=== PATIENT | female | born 1995 | race Asian ===

== ENCOUNTER 2020-05-16 10:03 | Inpatient (IN) | payer MEDICAID, OTHER ==
[2020-05-16] MEDS ORDERED: Ondansetron PF 4 MG/2 ML Vial IVP PRN ×3 (10:45→23:55)
[2020-05-16] MEDS ORDERED: Lactated Ringer's 1,000 ML IV SCH (10:45)
[2020-05-16] MEDS ORDERED: Diphenoxylate HCl/Atropine Tablet PO PRN ×2 (10:45)
[2020-05-16] MEDS ORDERED: Ibuprofen 800 MG TAB PO PRN (10:45)
[2020-05-16] MEDS ORDERED: Lidocaine 1% (PF) 30 ML VIAL SC PRN (10:45)
[2020-05-16] MEDS ORDERED: hydrALAZINE 20 MG/ML VIAL SLOW IVP PRN ×2 (10:45→23:55)
[2020-05-16] MEDS ORDERED: Acetaminophen 500 MG TAB PO PRN (10:45)
[2020-05-16] MEDS ORDERED: Promethazine HCl 25 MG/ML VIAL IM PRN ×3 (10:45→23:55)
[2020-05-16] MEDS ORDERED: Methylergonovine 0.2 MG/ML VIAL IM PRN ×2 (10:45→23:55)
[2020-05-16] MEDS ORDERED: Butorphanol Tartrate 1 MG/ML VIAL SLOW IVP PRN (10:45)
[2020-05-16] MEDS ORDERED: Carboprost 250 MCG/ML AMP IM PRN (10:45)
[2020-05-16] MEDS ORDERED: HYDROcodone/Acetaminophen 5/325 mg Tablet PO PRN ×4 (10:45→23:55)
[2020-05-16] MEDS ORDERED: Misoprostol 200 MCG TAB PR PRN (10:45)
[2020-05-16 11:09] LABS: Hemoglobin 11.5 g/dL (12.0-15.5); Mean Corpuscular HGB CONC 32.2 g/dL (32.0-36.0); Mean Corpuscular Hemoglobin 27.4 pg (27.0-33.0); Mean Platelet Volume 10.7 fl (7.4-10.4); Platelet Count 236 10x3/uL (150-450); RBC Distribution Width 14.4 % (11.5-14.5)
[2020-05-16 11:27] LABS: ALT (SGPT) 49 U/L (8-55); AST (SGOT) 27 U/L (5-34); Albumin 3.6 g/dL (3.5-5.0); Alkaline Phosphatase 295 U/L (40-110); Anion Gap 14 mmol/L (10-20); BUN (Urea Nitrogen) 7 mg/dL (7.0-18.7); Bilirubin, Total 0.4 mg/dL (0.2-1.2); Calc. Creatinine Clearance 0 mL/min (70-130); Calcium 9.2 mg/dL (7.8-10.44); Carbon Dioxide 22 mmol/L (22-29); Chloride 105 mmol/L (98-107); Globulin 3.2 g/dL (2.4-3.5); Glucose 98 mg/dL (70-105); Potassium 3.9 mmol/L (3.5-5.1); Protein, Total 6.8 g/dL (6.0-8.3); Sodium 137 mmol/L (136-145)
[2020-05-16 11:49] LABS: Syphilis Antibody Nonreactive (Nonreactive); Syphilis Antibody Index 0.07 S/CO (<1.00 Non-Reactive)
[2020-05-16 12:15] VITALS: BMI 26.6
[2020-05-16] MEDS ORDERED: NS w/ Oxytocin 30 units 500 ML IV PRN (12:33)
[2020-05-16] MEDS ORDERED: NS w/ Oxytocin 30 units 500 ML IVPB SCH ×2 (12:45)
[2020-05-16 13:12] LABS: HBSAg Index 2377.01 S/CO (0-0.99); Hep B Surf Ag Reflx Confirmation S/CO (NonReactive)
[2020-05-16] MEDS ORDERED: Fentanyl 4 mcg/Bup 0.1% Cadd 100 ML ONE (14:07)
[2020-05-16] MEDS ORDERED: ePHEDrine 50 MG/ML VIAL SLOW IVP PRN (14:57)
[2020-05-16] MEDS ORDERED: Lactated Ringer's 500 ML IV PRN (14:57)
[2020-05-16] MEDS ORDERED: Acetaminophen 325 MG TAB PO PRN (14:57)
[2020-05-16] MEDS ORDERED: diphenhydrAMINE 50 MG/ML VIAL IVP PRN (14:57)
[2020-05-16] MEDS ORDERED: Naloxone HCl 0.4 mg/ml Vial IVP PRN ×2 (14:57)
[2020-05-16] MEDS ORDERED: Fentanyl 4 mcg/Bupivacaine 0.1% Cassette 100 ML EPIDURAL SCH (15:00)
[2020-05-16] MEDS ORDERED: Communication Order-Pharmacy FS SCH (15:00)
[2020-05-16] MEDS ORDERED: Preparation H Ointment 28 GM TUBE PR PRN (23:55)
[2020-05-16] MEDS ORDERED: Zolpidem Tartrate 5 MG TAB PO PRN (23:55)
[2020-05-16] MEDS ORDERED: Lanolin Ointment 7 GM TUBE TOP PRN (23:55)
[2020-05-16] MEDS ORDERED: Benzocaine-Menthol 82.5 ML CAN TOP PRN (23:55)
[2020-05-16] MEDS ORDERED: Bisacodyl 10 MG SUPP PR PRN (23:55)
[2020-05-16] MEDS ORDERED: Adacel (T-DAP) 0.5 ML SYRINGE IM ONE (23:55)
[2020-05-16] MEDS ORDERED: diphenhydrAMINE 25 MG CAP PO PRN (23:55)
[2020-05-16] MEDS ORDERED: Milk Of Magnesia 30 ML UDCUP PO PRN (23:55)
[2020-05-16] MEDS ORDERED: Varicella virus, LIVE 0.5 ML VIAL SC ONE (23:55)
[2020-05-16] MEDS ORDERED: Misoprostol 200 MCG TAB VAG PRN (23:55)
[2020-05-17] MEDS ORDERED: NS w/ Oxytocin 30 units 500 ML IV SCH (00:30)
[2020-05-17] MEDS ORDERED: Docusate Calcium (SURFAK) 240 MG CAP PO SCH (00:30)
[2020-05-17 01:22] LABS: SARS-CoV-2 PCR by NAA Not Detected (NotDetected)
[2020-05-17 07:21] LABS: Hemoglobin 10.8 g/dL (12.0-15.5); Mean Corpuscular HGB CONC 31.3 g/dL (32.0-36.0); Mean Corpuscular Hemoglobin 26.8 pg (27.0-33.0); Mean Corpuscular Volume 85.6 fl (81.6-98.3); Mean Platelet Volume 11.1 fl (7.4-10.4); Platelet Count 205 10x3/uL (150-450); RBC Distribution Width 14.4 % (11.5-14.5); Red Blood Cell (RBC) Count 4.03 10x6/uL (3.90-5.03); White Blood Cell (WBC) Count 10.2 10x3/uL (3.5-10.5)
[2020-05-17] MEDS: Ibuprofen 800 MG TAB PO SCH ×4 (07:21→22:06)
[2020-05-17] MEDS: Ferrous Sulfate 325 MG TAB PO SCH ×2 (08:49→16:25)
[2020-05-17] MEDS: Prenatal Vitamin 1 TAB PO SCH (08:52)
[2020-05-17] MEDS: Docusate Calcium (SURFAK) 240 MG CAP PO SCH (22:07)
[2020-05-18] MEDS: Ibuprofen 800 MG TAB PO SCH (05:58)
[2020-05-18] MEDS: Ferrous Sulfate 325 MG TAB PO SCH (07:15)
[2020-05-18 07:55] VITALS: BP 103/59; TEMP 98.3
[2020-05-18] MEDS ORDERED: Measles/Mumps/Rubella 10 MCG/0.5 ML VIAL SC ONE (09:00)
[2020-05-18] MEDS: Prenatal Vitamin 1 TAB PO SCH (10:12)
[2020-05-18] MEDS: Docusate Calcium (SURFAK) 240 MG CAP PO SCH (10:12)
[2020-05-18 10:42] LABS: Hep B Surface AG-Rflx Sendout Confirm. indicated (Negative)
== END 2020-05-18 11:20 | disposition home or self-care (01) | DRG 806 ==
LOC: CSHLD 10:03 → CSHPED 05-17 09:13
PROVIDERS: ADMIT Obstetrics & Gynecology; ATTEND Obstetrics & Gynecology
PROC: 10E0XZZ Delivery of Products of Conception, External Approach (ICD-10-PCS; principal; 2020-05-16)
PROC: 0KQM0ZZ Repair Perineum Muscle, Open Approach (ICD-10-PCS; 2020-05-16)
PROC: 3E0234Z Introduction of Serum, Toxoid and Vaccine into Muscle, Percutaneous Approach (ICD-10-PCS; 2020-05-16)
DX: O98.82 Other maternal infectious and parasitic diseases complicating childbirth (principal); B18.1 Chronic viral hepatitis B without delta-agent; Z20.822 Contact with and (suspected) exposure to COVID-19; O70.1 Second degree perineal laceration during delivery; Z23 Encounter for immunization; Z37.0 Single live birth; Z3A.38 38 weeks gestation of pregnancy
CPT/HCPCS: 36415; 51702; 80053; 85027; 86780; 86850; 86900; 86901; 87340; 87635; 90715; J2590; U0003; U0005

== ENCOUNTER 2022-10-02 10:12 | Day surgery (SDC) | payer OTHER ==
[2022-09-30 10:22] VITALS: BMI 23.3
[2022-10-02 11:58] LABS: BHCG - Serum Negative (NEGATIVE); Pregs Control Background? CLEAR/WHITE (CLR/WHITE); Pregs Control Bar Appear? YES (CONTROL BAR)
[2022-10-02 11:59] LABS: Hematocrit 44.5 % (34.9-44.5); Hemoglobin 14.8 g/dL (12.0-15.5); Mean Corpuscular HGB CONC 33.3 g/dL (32.0-36.0); Mean Corpuscular Hemoglobin 29.2 pg (27.0-33.0); Mean Corpuscular Volume 87.9 fl (81.6-98.3); Mean Platelet Volume 10.1 fl (7.4-10.4); Platelet Count 269 10x3/uL (150-450); Red Blood Cell (RBC) Count 5.06 10x6/uL (3.90-5.03); White Blood Cell (WBC) Count 3.6 10x3/uL (3.5-10.5)
[2022-10-02] MEDS ORDERED: PROPOFOL 20 ML ONE (12:37)
[2022-10-02] MEDS ORDERED: Glycopyrrolate 0.2 MG/ML 5 ML SYRINGE ONE (12:37)
[2022-10-02] MEDS ORDERED: Lidocaine 1% PF 5 ML VIAL ONE (12:37)
[2022-10-02] MEDS ORDERED: Water For Injection,Sterile 20 ML ONE (12:38)
[2022-10-02] MEDS ORDERED: Lidocaine 2% PF 5 ML VIAL ONE (12:38)
[2022-10-02] MEDS ORDERED: CEFAZOLIN 2 GM VIAL ONE (12:48)
[2022-10-02] MEDS ORDERED: Ondansetron PF 4 MG/2 ML Vial ONE (13:10)
[2022-10-02] MEDS ORDERED: fentaNYL 50 mcg/mL 1 mL Vial ONE (13:13)
== END 2022-10-02 14:55 | disposition home or self-care (01) ==
LOC: CSHSDC 10:12
PROVIDERS: ATTEND Obstetrics & Gynecology
PROC: 0UJD8ZZ Inspection of Uterus and Cervix, Via Natural or Artificial Opening Endoscopic (ICD-10-PCS; principal; 2022-10-02)
PROC: 0UDB8ZZ Extraction of Endometrium, Via Natural or Artificial Opening Endoscopic (ICD-10-PCS; principal; 2022-10-02)
DX: N93.9 Abnormal uterine and vaginal bleeding, unspecified (principal)
CPT/HCPCS: 84703; 85027; 86850; 86900; 86901; 88305; J2001; J2405; J2704; J3010